=== PATIENT | female | born 1955 | race Hispanic/Latino ===

== ENCOUNTER 2018-03-29 20:31 | Inpatient (IN) | payer OTHER ==
[~2018-03-29] VITALS: Ht 152.4 cm; Wt 59.0 kg
[~2018-03-29 20:31] MED LIST: AMLO10TA6 PO; ATOR20TA65 PO; ETOMIDATE 2 MG/ML 10 ML VIAL IVP ONE; GLIM1TAB2 PO; LISI10TA7 PO; METF-444 PO; ROCURONIUM BROMIDE 10MG/1ML 5ML VL IV ONE
[2018-03-29] MEDS ORDERED: LIDOCAINE HCL 2% VISCOUS 15 ML UDCUP ONE (21:25)
[2018-03-29] MEDS ORDERED: FAMOTIDINE 20MG TAB 20 MG TAB ONE (21:25)
[2018-03-29] MEDS ORDERED: MAG HYDROX/AL HYDROX/SIMETH ES 30 ML SUSP UDCUP ONE (21:25)
[2018-03-29] MEDS ORDERED: ACETAMINOPHEN 325 MG TAB ONE (21:26)
[2018-03-29 21:27] LABS: BASOPHILS % (AUTO) 0.3 % (0.0-5.0); HEMATOCRIT 28.5 % (36-48); LYMPHOCYTES % (AUTO) 3.7 % (21.0-51.0); MEAN CORPUSCULAR HEMOGLOBIN 28.3 pg (27.0-33.0); MEAN CORPUSCULAR HGB CONC 34.3 g/dL (32.0-36.0); MEAN CORPUSCULAR VOLUME 82.5 fL (79-99); MONOCYTES % (AUTO) 7.5 % (3.0-13.0); NEUTROPHILS % (AUTO) 88.5 % (40.0-77.0); NUCLEATED RED BLOOD CELLS 0.1 % (0.0-0.19); PLATELET COUNT (AUTO) 202 K/uL (130-400); RED BLOOD CELL COUNT(AUTO) 3.45 MIL/uL (4.00-5.50); WHITE BLOOD COUNT (AUTO) 10.6 K/uL (4.8-10.8)
[2018-03-29 21:29] LABS: APPEARANCE,URINE Clear (CLEAR); BILIRUBIN,URINE Negative (NEGATIVE); COLOR,URINE Yellow (YELLOW); GLUCOSE, URINE (UA) >=1000 mg/dL (NEGATIVE); KETONES,URINE Trace mg/dL (NEGATIVE); LEUKOCYTE ESTERASE ,URINE Moderate (NEGATIVE); NITRATE,URINE Positive (NEGATIVE); OCCULT BLOOD,URINE Negative (NEGATIVE); PH,URINE 6.5 (5.0-8.0); PROTEIN,URINE Negative (NEGATIVE)
[2018-03-29 21:52] LABS: ALBUMIN 3.5 g/dL (3.5-5.0); BILIRUBIN,TOTAL 0.5 mg/dL (0.2-1.0); CREATININE 0.7 mg/dL (0.5-1.5); POTASSIUM 4.5 mmol/L (3.5-5.1); TOTAL PROTEIN, SERUM 6.8 g/dL (6.0-8.3)
[2018-03-29 21:54] LABS: BACTERIA,URINE Moderate /HPF (None Seen); RBC,URINE 0-1 /HPF (0-1)
[2018-03-29 21:55] LABS: SQUAMOUS EPITHELIAL CELL,UR Rare /HPF (0-2)
[2018-03-29] MEDS: LEVOFLOXACIN 500 MG/D5W 100 ML 100 ML IV SCH (23:30)
[2018-03-29] MEDS: SODIUM CHLORIDE 0.9% 1000ML 1,000 ML IV SCH (23:30)
[2018-03-30] VITALS (7 sets, daily range): BP systolic 121–150; BP diastolic 63–74
[2018-03-30] MEDS ORDERED: SODIUM CHLORIDE 0.9% 1000ML 1,000 ML IV ONE
[2018-03-30] MEDS ORDERED: LEVOFLOXACIN 500 MG/D5W 100 ML 0 ML ONE
[2018-03-30] MEDS ORDERED: LEVOFLOXACIN 500 MG/D5W 100 ML 100 ML ONE (00:07)
[2018-03-30] MEDS ORDERED: DEXTROSE 50%-WATER 50 ML DISP.SYRIN IV PRN ×2 (00:30→12:30)
[2018-03-30] MEDS ORDERED: GLUCAGON 1MG KIT 1 MG ML IM PRN ×2 (00:30→12:30)
[2018-03-30 01:03] LABS: HEMOGLOBIN A1C 6.8 % (4.0-6.0)
[2018-03-30] MEDS ORDERED: ONDANSETRON HCL 4 MG/2 ML VIAL IV PRN (02:15)
[2018-03-30] MEDS ORDERED: LISI-613 PO (04:50)
[2018-03-30] MEDS ORDERED: METF-444 PO (04:50)
[2018-03-30] MEDS ORDERED: LEVO50TA11 PO (04:50)
[2018-03-30] MEDS ORDERED: ATOR40TA69 PO (04:50)
[2018-03-30] MEDS ORDERED: AEC81 PO (04:50)
[2018-03-30 06:15] LABS: BASOPHILS % (AUTO) 0.1 % (0.0-5.0); HEMATOCRIT 26.9 % (36-48); LYMPHOCYTES % (AUTO) 5.8 % (21.0-51.0); MEAN CORPUSCULAR HEMOGLOBIN 28.8 pg (27.0-33.0); MEAN CORPUSCULAR HGB CONC 34.9 g/dL (32.0-36.0); MEAN CORPUSCULAR VOLUME 82.3 fL (79-99); MONOCYTES % (AUTO) 9.1 % (3.0-13.0); PLATELET COUNT (AUTO) 196 K/uL (130-400); RED BLOOD CELL COUNT(AUTO) 3.27 MIL/uL (4.00-5.50); RED CELL DISTRIBUTION WIDTH 13.1 % (11.0-15.5); WHITE BLOOD COUNT (AUTO) 7.4 K/uL (4.8-10.8)
[2018-03-30 06:30] LABS: ALBUMIN 2.9 g/dL (3.5-5.0); BILIRUBIN,TOTAL 0.5 mg/dL (0.2-1.0); CREATININE 0.6 mg/dL (0.5-1.5); POTASSIUM 4.5 mmol/L (3.5-5.1); TOTAL PROTEIN, SERUM 5.9 g/dL (6.0-8.3)
[2018-03-30] MEDS: PANTOPRAZOLE SODIUM 40 MG TABLET.DR PO SCH (08:09)
[2018-03-30] MEDS: ACETAMINOPHEN 325 MG TAB PO PRN ×3 (08:11→23:01)
[2018-03-30] MEDS: ENOXAPARIN SODIUM 30 MG/0.3 ML SQ SCH (08:18)
[2018-03-30] MEDS ORDERED: CEFTRIAXONE SODIUM 1 GM IVP SCH (09:00)
[2018-03-30] MEDS: SODIUM CHLORIDE 0.9% 1000ML 1,000 ML IV SCH ×2 (11:25→23:00)
[2018-03-30] MEDS: CEFEPIME HCL 2 GM VIAL IVP SCH ×2 (15:25→22:49)
[2018-03-30] MEDS: INSULIN HUMULIN R 100 UNIT/ML 3ML SQ SCH ×2 (17:22→22:14)
[2018-03-30] MEDS: LEVOFLOXACIN 500 MG/D5W 100 ML 100 ML IV SCH (22:49)
[2018-03-31 03:00] VITALS: BP 139/68
[2018-03-31 04:00] LABS: HEMATOCRIT 26.7 % (36-48); MEAN CORPUSCULAR HEMOGLOBIN 28.1 pg (27.0-33.0); MEAN CORPUSCULAR HGB CONC 34.5 g/dL (32.0-36.0); MEAN CORPUSCULAR VOLUME 81.7 fL (79-99); NUCLEATED RED BLOOD CELLS 0.1 % (0.0-0.19); PLATELET COUNT (AUTO) 176 K/uL (130-400); RED BLOOD CELL COUNT(AUTO) 3.26 MIL/uL (4.00-5.50); WHITE BLOOD COUNT (AUTO) 5.2 K/uL (4.8-10.8)
[2018-03-31 04:20] LABS: CREATININE 0.7 mg/dL (0.5-1.5); MAGNESIUM 1.9 mg/dL (1.80-2.40); POTASSIUM 3.7 mmol/L (3.5-5.1)
[2018-03-31 04:23] LABS: BAND NEUTROPHILS % (MANUAL) 10 % (0-2); LYMPHOCYTES % (MANUAL) 10 % (22-44); MAN.DIFF COMMENT-IMPRESSION MANUAL DIFFERENTIAL; MONOCYTES % (MANUAL) 8 % (2-9); PLATELET MORPHOLOGY COMMENT ADEQUATE; SEGMENTED NEUTROPHILS % 72 % (40-70)
[2018-03-31] MEDS: ACETAMINOPHEN 325 MG TAB PO PRN ×2 (05:06→21:29)
[2018-03-31] MEDS: INSULIN HUMULIN R 100 UNIT/ML 3ML SQ SCH ×3 (07:08→21:00)
[2018-03-31 07:47] VITALS: BP 132/61
[2018-03-31] MEDS: PANTOPRAZOLE SODIUM 40 MG TABLET.DR PO SCH (09:00)
[2018-03-31] MEDS: ENOXAPARIN SODIUM 30 MG/0.3 ML SQ SCH (09:00)
[2018-03-31] MEDS ORDERED: COMPOUND IV MISC 1 EACH IVSOLN MISC PRN (10:15)
[2018-03-31] MEDS: CEFEPIME HCL 2 GM VIAL IVP SCH ×2 (11:02→23:00)
[2018-03-31] MEDS: SODIUM CHLORIDE 0.9% 1000ML 1,000 ML IV SCH ×2 (11:04→21:29)
[2018-03-31 12:03] VITALS: BP 144/69
[2018-03-31 16:36] VITALS: BP 135/64
[2018-03-31 19:00] VITALS: BP 139/68
[2018-03-31] MEDS ORDERED: LIDOCAINE HCL-MPF 1% 2ML VIAL IVP PRN (21:30)
[2018-03-31] MEDS ORDERED: POTASSIUM CHLORIDE 20MEQ/100ML 100 ML IV PRN (21:30)
[2018-03-31] MEDS ORDERED: POTASSIUM CHLORIDE 20 MEQ ERTAB PO PRN (21:30)
[2018-03-31] MEDS ORDERED: POTASSIUM CHLORIDE 10% ELIXIR 20 MEQ/15 ML UDCUP PO PRN (21:30)
[2018-03-31] MEDS ORDERED: ASPIRIN 325MG EC TAB 325 MG TABLET.DR PO STA (21:34)
[2018-03-31] MEDS ORDERED: METOPROLOL TARTRATE 1 MG/ML 5ML VIAL IV SCH (21:45)
[2018-03-31 21:55] LABS: CREATINE KINASE, TOTAL 124 U/L (21-232); MYOGLOBIN 48 ng/mL (10-92); TROPONIN I < 0.04 ng/mL (0.00-0.06)
[2018-03-31 21:58] LABS: CREATININE 0.7 mg/dL (0.5-1.5); MAGNESIUM 1.9 mg/dL (1.80-2.40); POTASSIUM 3.5 mmol/L (3.5-5.1)
[2018-03-31 22:10] LABS: BASOPHILS % (AUTO) 0.6 % (0.0-5.0); HEMATOCRIT 27.1 % (36-48); LYMPHOCYTES % (AUTO) 12.4 % (21.0-51.0); MEAN CORPUSCULAR HEMOGLOBIN 28.2 pg (27.0-33.0); MEAN CORPUSCULAR HGB CONC 34.4 g/dL (32.0-36.0); MONOCYTES % (AUTO) 6.7 % (3.0-13.0); NEUTROPHILS % (AUTO) 80.3 % (40.0-77.0); PLATELET COUNT (AUTO) 169 K/uL (130-400); RED BLOOD CELL COUNT(AUTO) 3.31 MIL/uL (4.00-5.50); RED CELL DISTRIBUTION WIDTH 13.5 % (11.0-15.5); WHITE BLOOD COUNT (AUTO) 6.4 K/uL (4.8-10.8)
[2018-03-31 22:39] LABS: CRP QUANTITATIVE 178.4 mg/L (0.00-9.0)
[2018-03-31] MEDS ORDERED: SODIUM CHLORIDE 0.9% 500ML 500 ML IV ONE (22:45)
[2018-03-31] MEDS ORDERED: SODIUM CHLORIDE 0.9% 250 ML IV ONE (22:57)
[2018-03-31 23:00] VITALS: BP 111/59
[2018-03-31] MEDS: LEVOFLOXACIN 500 MG/D5W 100 ML 100 ML IV SCH (23:00)
[2018-03-31] MEDS: MAGNESIUM 2GM PREMIX 50ML 50 ML IV PRN (23:49)
[2018-04-01 03:41] LABS: BASOPHILS % (AUTO) 0.7 % (0.0-5.0); HEMATOCRIT 24.2 % (36-48); LYMPHOCYTES % (AUTO) 9.8 % (21.0-51.0); MEAN CORPUSCULAR HEMOGLOBIN 28.3 pg (27.0-33.0); MEAN CORPUSCULAR VOLUME 83.2 fL (79-99); MONOCYTES % (AUTO) 7.9 % (3.0-13.0); NEUTROPHILS % (AUTO) 81.6 % (40.0-77.0); NUCLEATED RED BLOOD CELLS 0.1 % (0.0-0.19); PLATELET COUNT (AUTO) 168 K/uL (130-400); RED BLOOD CELL COUNT(AUTO) 2.91 MIL/uL (4.00-5.50); RED CELL DISTRIBUTION WIDTH 13.3 % (11.0-15.5); WHITE BLOOD COUNT (AUTO) 5.6 K/uL (4.8-10.8)
[2018-04-01 03:46] LABS: CARBON DIOXIDE 23 mmol/L (21-32); CHLORIDE 101 mmol/L (101-111); CHOLESTEROL 95 mg/dL (<200); CREATININE 0.5 mg/dL (0.5-1.5); GLOMERULAR FILTR. RATE CALC 134 mL/min (>60); GLUCOSE,RANDOM 163 mg/dL (70-105); HDL CHOLESTEROL 19 mg/dL (35-85); LDL DIRECT 35 mg/dL (0-99); POTASSIUM 3.7 mmol/L (3.5-5.1); SODIUM SERUM 130 mmol/L (136-145); THYROID STIMULATING HORMONE 3.16 uIU/mL (0.36-3.74); TRIGLYCERIDES 240 mg/dL (30-200); UREA NITROGEN, BLOOD 8 mg/dL (7-18)
[2018-04-01 04:00] VITALS: BP 140/69
[2018-04-01 04:14] LABS: CREATINE KINASE, TOTAL 93 U/L (21-232); TROPONIN I < 0.04 ng/mL (0.00-0.06)
[2018-04-01 04:54] LABS: MYOGLOBIN 33 ng/mL (10-92)
[2018-04-01] MEDS: LEVOTHYROXINE 50 MCG TABLET PO SCH (05:54)
[2018-04-01] MEDS: INSULIN HUMULIN R 100 UNIT/ML 3ML SQ SCH ×4 (05:55→21:00)
[2018-04-01 07:36] VITALS: BP 152/79
[2018-04-01] MEDS: AMLODIPINE BESYLATE 5 MG TAB PO SCH (08:15)
[2018-04-01] MEDS: ASPIRIN 325MG EC TAB 325 MG TABLET.DR PO SCH (08:15)
[2018-04-01] MEDS: METFORMIN HCL 500 MG TABLET PO SCH ×2 (08:15→22:59)
[2018-04-01] MEDS: PANTOPRAZOLE SODIUM 40 MG TABLET.DR PO SCH (08:15)
[2018-04-01] MEDS: ENOXAPARIN SODIUM 30 MG/0.3 ML SQ SCH (08:16)
[2018-04-01] MEDS: IRON SUCROSE COMPLEX 100 MG in SODIUM CHLORIDE 0.9% 50 ML IV SCH (08:40)
[2018-04-01 09:33] LABS: CREATINE KINASE, TOTAL 106 U/L (21-232); MYOGLOBIN 48 ng/mL (10-92); TROPONIN I < 0.04 ng/mL (0.00-0.06)
[2018-04-01] MEDS: CEFEPIME HCL 2 GM VIAL IVP SCH ×2 (09:36→22:58)
[2018-04-01 11:49] VITALS: BP 127/65
[2018-04-01] MEDS: OSELTAMIVIR PHOSPHATE 75 MG CAP PO SCH ×2 (14:45→22:59)
[2018-04-01 16:00] VITALS: BP 140/73
[2018-04-01] MEDS: ACETAMINOPHEN 325 MG TAB PO PRN (19:41)
[2018-04-01 20:04] VITALS: BP 132/60
[2018-04-01] MEDS ORDERED: ATORVASTATIN CALCIUM 40 MG TABLET PO SCH (21:00)
[2018-04-01] MEDS: LISINOPRIL 20 MG TABLET PO SCH (22:59)
[2018-04-01] MEDS: LEVOFLOXACIN 500 MG/D5W 100 ML 100 ML IV SCH (23:10)
[2018-04-01 23:48] VITALS: BP 125/63
[2018-04-02] VITALS (7 sets, daily range): BP systolic 110–131; BP diastolic 61–72
[2018-04-02] MEDS: ACETAMINOPHEN 325 MG TAB PO PRN ×2 (05:00→19:41)
[2018-04-02 05:01] LABS: BASOPHILS % (AUTO) 0.4 % (0.0-5.0); LYMPHOCYTES % (AUTO) 10.3 % (21.0-51.0); MEAN CORPUSCULAR HEMOGLOBIN 28.2 pg (27.0-33.0); MEAN CORPUSCULAR HGB CONC 34.2 g/dL (32.0-36.0); MEAN CORPUSCULAR VOLUME 82.4 fL (79-99); MONOCYTES % (AUTO) 12.4 % (3.0-13.0); NEUTROPHILS % (AUTO) 76.9 % (40.0-77.0); PLATELET COUNT (AUTO) 194 K/uL (130-400); RED BLOOD CELL COUNT(AUTO) 3.15 MIL/uL (4.00-5.50); RED CELL DISTRIBUTION WIDTH 13.5 % (11.0-15.5); WHITE BLOOD COUNT (AUTO) 9.3 K/uL (4.8-10.8)
[2018-04-02 05:21] LABS: ALBUMIN 2.6 g/dL (3.5-5.0); BILIRUBIN,DIRECT 0.3 mg/dL (0.0-0.3); BILIRUBIN,TOTAL 0.6 mg/dL (0.2-1.0); CREATININE 0.7 mg/dL (0.5-1.5); MAGNESIUM 2.3 mg/dL (1.80-2.40); POTASSIUM 4.2 mmol/L (3.5-5.1); TOTAL PROTEIN, SERUM 5.8 g/dL (6.0-8.3)
[2018-04-02] MEDS: LEVOTHYROXINE 50 MCG TABLET PO SCH (05:40)
[2018-04-02] MEDS: INSULIN HUMULIN R 100 UNIT/ML 3ML SQ SCH ×4 (06:42→21:45)
[2018-04-02] MEDS ORDERED: SODIUM CHLORIDE 0.9% 1000ML 1,000 ML IV SCH (08:00)
[2018-04-02] MEDS: ASPIRIN 325MG EC TAB 325 MG TABLET.DR PO SCH (09:49)
[2018-04-02] MEDS: METFORMIN HCL 500 MG TABLET PO SCH ×2 (09:50→20:57)
[2018-04-02] MEDS: OSELTAMIVIR PHOSPHATE 75 MG CAP PO SCH ×2 (09:50→20:57)
[2018-04-02] MEDS: AMLODIPINE BESYLATE 5 MG TAB PO SCH (09:50)
[2018-04-02] MEDS: PANTOPRAZOLE SODIUM 40 MG TABLET.DR PO SCH (09:50)
[2018-04-02] MEDS: ENOXAPARIN SODIUM 30 MG/0.3 ML SQ SCH (09:52)
[2018-04-02] MEDS: IRON SUCROSE COMPLEX 100 MG in SODIUM CHLORIDE 0.9% 50 ML IV SCH (10:29)
[2018-04-02] MEDS ORDERED: DIATR MEGLU/DIATRIZOATE SODIUM 30 ML BOTTLE ONE (12:08)
[2018-04-02 19:37] LABS: ABG BASE EXCESS -7.1 mmol/L (-2.0-3.0); ABG HCO3 16.3 mmol/L (21.0-28.0); ABG OXYGEN SATURATION 91.9 % (95.0-99.0); ABG PCO2 26 mmHg (32-45)
[2018-04-02 19:48] LABS: HEMATOCRIT 26.3 % (36-48); MEAN CORPUSCULAR HEMOGLOBIN 27.8 pg (27.0-33.0); MEAN CORPUSCULAR HGB CONC 33.4 g/dL (32.0-36.0); MEAN CORPUSCULAR VOLUME 83.4 fL (79-99); PLATELET COUNT (AUTO) 238 K/uL (130-400); RED BLOOD CELL COUNT(AUTO) 3.16 MIL/uL (4.00-5.50); RED CELL DISTRIBUTION WIDTH 14.1 % (11.0-15.5); WHITE BLOOD COUNT (AUTO) 14.5 K/uL (4.8-10.8)
[2018-04-02 20:00] LABS: CREATININE 0.8 mg/dL (0.5-1.5); POTASSIUM 3.8 mmol/L (3.5-5.1)
[2018-04-02 20:02] LABS: INR 0.96 (0.85-1.15); PARTIAL THROMBOPLASTIN TIME 38.1 SEC (26.3-35.5); PROTHROMBIN TIME 10.1 SEC (9.6-11.6)
[2018-04-02 20:06] LABS: ALBUMIN 2.7 g/dL (3.5-5.0); BILIRUBIN,TOTAL 0.6 mg/dL (0.2-1.0); TOTAL PROTEIN, SERUM 6.3 g/dL (6.0-8.3)
[2018-04-02] MEDS ORDERED: VANCOMYCIN PROTOCOL PER PHARMACY IV SCH (20:30)
[2018-04-02] MEDS: SODIUM CHLORIDE 0.9% 1000ML 1,000 ML IV SCH (20:30)
[2018-04-02] MEDS ORDERED: COMPOUND IV REFRIGERATED 1 EACH IVSOLN MISC PRN (20:45)
[2018-04-02] MEDS: LISINOPRIL 20 MG TABLET PO SCH (20:57)
[2018-04-02] MEDS: MEROPENEM 1 GM VIAL IVP SCH (20:57)
[2018-04-02] MEDS ORDERED: VANCOMYCIN 1GM+NS 250ML 250 ML IV SCH (21:00)
[2018-04-02] MEDS: LEVOFLOXACIN 500 MG/D5W 100 ML 100 ML IV SCH (21:45)
[2018-04-02] MEDS: VANCOMYCIN 0.75 GM in SODIUM CHLORIDE 0.9% 250 ML IV SCH (21:47)
[2018-04-02] MEDS: IPRATROPIUM/ALBUTEROL SULFATE 3 ML SOLUTION IH SCH (23:02)
[2018-04-02] MEDS: LACTATED RINGERS 1000ML 1,000 ML IV SCH (23:12)
[2018-04-03] VITALS (32 sets, daily range): BP systolic 56–131; BP diastolic 30–76
[2018-04-03] MEDS: IPRATROPIUM/ALBUTEROL SULFATE 3 ML SOLUTION IH SCH ×6 (01:37→21:41)
[2018-04-03 04:09] LABS: BASOPHILS % (AUTO) 0.2 % (0.0-5.0); HEMATOCRIT 22.4 % (36-48); LYMPHOCYTES % (AUTO) 6.5 % (21.0-51.0); MEAN CORPUSCULAR HEMOGLOBIN 28.6 pg (27.0-33.0); MEAN CORPUSCULAR HGB CONC 34.6 g/dL (32.0-36.0); MEAN CORPUSCULAR VOLUME 82.7 fL (79-99); MONOCYTES % (AUTO) 11.7 % (3.0-13.0); NEUTROPHILS % (AUTO) 81.6 % (40.0-77.0); PLATELET COUNT (AUTO) 233 K/uL (130-400); RED BLOOD CELL COUNT(AUTO) 2.71 MIL/uL (4.00-5.50); RED CELL DISTRIBUTION WIDTH 13.7 % (11.0-15.5); WHITE BLOOD COUNT (AUTO) 14.4 K/uL (4.8-10.8)
[2018-04-03] MEDS: SODIUM CHLORIDE 0.9% 1000ML 1,000 ML IV SCH (04:20)
[2018-04-03] MEDS: MEROPENEM 1 GM VIAL IVP SCH ×3 (04:20→20:25)
[2018-04-03 04:45] LABS: CREATININE 0.7 mg/dL (0.5-1.5); POTASSIUM 3.5 mmol/L (3.5-5.1)
[2018-04-03] MEDS ORDERED: ENOXAPARIN SODIUM 60 MG/0.6 ML SQ ONE (05:22)
[2018-04-03 05:43] LABS: ABG BASE EXCESS -6.2 mmol/L (-2.0-3.0); ABG HCO3 16.8 mmol/L (21.0-28.0); ABG OXYGEN SATURATION 97.5 % (95.0-99.0); ABG PCO2 28 mmHg (32-45)
[2018-04-03] MEDS: LACTATED RINGERS 1000ML 1,000 ML IV SCH ×2 (06:06→17:15)
[2018-04-03] MEDS: INSULIN HUMULIN R 100 UNIT/ML 3ML SQ SCH ×4 (06:07→23:51)
[2018-04-03] MEDS: LEVOTHYROXINE 50 MCG TABLET PO SCH (06:29)
[2018-04-03] MEDS: AMLODIPINE BESYLATE 5 MG TAB PO SCH (08:46)
[2018-04-03] MEDS: PANTOPRAZOLE SODIUM 40 MG TABLET.DR PO SCH (08:46)
[2018-04-03] MEDS: METFORMIN HCL 500 MG TABLET PO SCH ×2 (08:46→20:14)
[2018-04-03] MEDS: ASPIRIN 325MG EC TAB 325 MG TABLET.DR PO SCH (08:46)
[2018-04-03] MEDS: OSELTAMIVIR PHOSPHATE 75 MG CAP PO SCH ×2 (08:46→20:27)
[2018-04-03] MEDS: VANCOMYCIN 0.75 GM in SODIUM CHLORIDE 0.9% 250 ML IV SCH ×2 (08:55→21:19)
[2018-04-03] MEDS: IRON SUCROSE COMPLEX 100 MG in SODIUM CHLORIDE 0.9% 50 ML IV SCH (08:57)
[2018-04-03] MEDS ORDERED: ENOXAPARIN SODIUM 60 MG/0.6 ML SQ SCH (09:00)
[2018-04-03 09:39] LABS: CREATININE 0.6 mg/dL (0.5-1.5); POTASSIUM 3.7 mmol/L (3.5-5.1)
[2018-04-03] MEDS ORDERED: FENTANYL CITRATE PF 50 MCG/1 ML 2ML VIAL ONE (11:14)
[2018-04-03] MEDS ORDERED: MIDAZOLAM HCL 1 MG/ML 2ML VIAL ONE (11:14)
[2018-04-03] MEDS ORDERED: FENTANYL 2500MCG+NS 250ML 250 ML IV ONE (11:37)
[2018-04-03] MEDS ORDERED: NOREPINEPHRINE 4MG/NS 250ML 250 ML IV SCH (11:45)
[2018-04-03] MEDS: MIDAZOLAM 100MG-0.9% NS 100ML 100 ML IV PRN (12:08)
[2018-04-03] MEDS: FENTANYL 2500MCG+NS 250ML 250 ML IV PRN (12:08)
[2018-04-03] MEDS: METHYLPREDNISOLONE SOD SUCC 40MG/ML 1ML IVP SCH ×2 (12:15→20:24)
[2018-04-03 12:38] LABS: ABG BASE EXCESS -6.3 mmol/L (-2.0-3.0); ABG HCO3 19.1 mmol/L (21.0-28.0); ABG OXYGEN SATURATION 99.7 % (95.0-99.0); ABG PCO2 38 mmHg (32-45)
[2018-04-03] MEDS: LISINOPRIL 20 MG TABLET PO SCH (20:14)
[2018-04-03] MEDS: ENOXAPARIN SODIUM 40 MG/0.4 ML SYRINGE SQ SCH (20:26)
[2018-04-03] MEDS: LEVOFLOXACIN 500 MG/D5W 100 ML 100 ML IV SCH (23:51)
[2018-04-04] VITALS (40 sets, daily range): BP systolic 92–121; BP diastolic 47–63
[2018-04-04] MEDS: IPRATROPIUM/ALBUTEROL SULFATE 3 ML SOLUTION IH SCH ×6 (02:11→22:29)
[2018-04-04] MEDS: LACTATED RINGERS 1000ML 1,000 ML IV SCH ×3 (03:06→23:55)
[2018-04-04] MEDS: METHYLPREDNISOLONE SOD SUCC 40MG/ML 1ML IVP SCH ×3 (03:24→20:52)
[2018-04-04] MEDS: MEROPENEM 1 GM VIAL IVP SCH ×3 (03:32→20:52)
[2018-04-04 03:44] LABS: MEAN CORPUSCULAR HEMOGLOBIN 27.4 pg (27.0-33.0); PLATELET COUNT (AUTO) 311 K/uL (130-400); RED BLOOD CELL COUNT(AUTO) 2.65 MIL/uL (4.00-5.50); RED CELL DISTRIBUTION WIDTH 14.2 % (11.0-15.5); WHITE BLOOD COUNT (AUTO) 20.8 K/uL (4.8-10.8)
[2018-04-04 03:53] LABS: ABG BASE EXCESS -7.5 mmol/L (-2.0-3.0); ABG HCO3 17.7 mmol/L (21.0-28.0); ABG OXYGEN SATURATION 99.7 % (95.0-99.0); ABG PCO2 35 mmHg (32-45)
[2018-04-04 04:11] LABS: ALBUMIN 2.1 g/dL (3.5-5.0); BILIRUBIN,DIRECT 0.2 mg/dL (0.0-0.3); BILIRUBIN,TOTAL 0.5 mg/dL (0.2-1.0); CREATININE 1.1 mg/dL (0.5-1.5); POTASSIUM 4.2 mmol/L (3.5-5.1); TOTAL PROTEIN, SERUM 5.6 g/dL (6.0-8.3)
[2018-04-04] MEDS: LEVOTHYROXINE 50 MCG TABLET PO SCH (05:47)
[2018-04-04] MEDS: INSULIN HUMULIN R 100 UNIT/ML 3ML SQ SCH ×3 (05:51→18:06)
[2018-04-04] MEDS ORDERED: VANCOMYCIN 1GM+NS 250ML 250 ML IV SCH (08:45)
[2018-04-04] MEDS: VANCOMYCIN 0.75 GM in SODIUM CHLORIDE 0.9% 250 ML IV SCH ×2 (08:45→20:52)
[2018-04-04] MEDS: ENOXAPARIN SODIUM 40 MG/0.4 ML SYRINGE SQ SCH ×2 (08:51→20:53)
[2018-04-04] MEDS: ASPIRIN 325MG EC TAB 325 MG TABLET.DR PO SCH (08:51)
[2018-04-04] MEDS: OSELTAMIVIR PHOSPHATE 75 MG CAP PO SCH ×2 (08:52→20:53)
[2018-04-04] MEDS: METFORMIN HCL 500 MG TABLET PO SCH ×2 (08:52→20:54)
[2018-04-04] MEDS: IRON SUCROSE COMPLEX 100 MG in SODIUM CHLORIDE 0.9% 50 ML IV SCH (08:52)
[2018-04-04] MEDS: PANTOPRAZOLE SODIUM 40 MG TABLET.DR PO SCH (08:52)
[2018-04-04] MEDS: FENTANYL 2500MCG+NS 250ML 250 ML IV PRN (12:20)
[2018-04-04] MEDS: MIDAZOLAM 100MG-0.9% NS 100ML 100 ML IV PRN (17:56)
[2018-04-04] MEDS: LEVOFLOXACIN 500 MG/D5W 100 ML 100 ML IV SCH (23:56)
[2018-04-05] VITALS (56 sets, daily range): BP systolic 98–135; BP diastolic 48–68
[2018-04-05] MEDS: INSULIN HUMULIN R 100 UNIT/ML 3ML SQ SCH ×4 (00:08→18:07)
[2018-04-05] MEDS: IPRATROPIUM/ALBUTEROL SULFATE 3 ML SOLUTION IH SCH ×6 (02:42→21:33)
[2018-04-05] MEDS: METHYLPREDNISOLONE SOD SUCC 40MG/ML 1ML IVP SCH ×3 (03:25→20:45)
[2018-04-05] MEDS: MEROPENEM 1 GM VIAL IVP SCH ×3 (03:37→20:45)
[2018-04-05 04:09] LABS: ABG BASE EXCESS -3.2 mmol/L (-2.0-3.0); ABG HCO3 21.1 mmol/L (21.0-28.0); ABG OXYGEN SATURATION 96.7 % (95.0-99.0); ABG PCO2 36 mmHg (32-45)
[2018-04-05 04:16] LABS: HEPATITIS A ANTIBODY IGM Negative (Negative); HEPATITIS B CORE IGM Negative (Negative); HEPATITIS Bs ANTIGEN SCREEN P Negative (Negative)
[2018-04-05 04:18] LABS: MEAN CORPUSCULAR VOLUME 82.6 fL (79-99)
[2018-04-05 04:34] LABS: HEMATOCRIT 21.1 % (36-48); MEAN CORPUSCULAR HEMOGLOBIN 27.8 pg (27.0-33.0); MEAN CORPUSCULAR HGB CONC 33.7 g/dL (32.0-36.0); PLATELET COUNT (AUTO) 399 K/uL (130-400); RED BLOOD CELL COUNT(AUTO) 2.55 MIL/uL (4.00-5.50); RED CELL DISTRIBUTION WIDTH 13.8 % (11.0-15.5); WHITE BLOOD COUNT (AUTO) 22.3 K/uL (4.8-10.8)
[2018-04-05 04:49] LABS: CREATININE 0.7 mg/dL (0.5-1.5); MAGNESIUM 2.6 mg/dL (1.80-2.40); PHOSPHORUS 1.9 mg/dL (2.5-4.9); POTASSIUM 3.8 mmol/L (3.5-5.1)
[2018-04-05 05:25] LABS: B-TYPE NATRIURETIC PEPTIDE 195 pg/mL (0-100)
[2018-04-05] MEDS: LEVOTHYROXINE 50 MCG TABLET PO SCH (06:06)
[2018-04-05] MEDS: IRON SUCROSE COMPLEX 100 MG in SODIUM CHLORIDE 0.9% 50 ML IV SCH (10:01)
[2018-04-05] MEDS: OSELTAMIVIR PHOSPHATE 75 MG CAP PO SCH ×2 (10:02→20:45)
[2018-04-05] MEDS: ENOXAPARIN SODIUM 40 MG/0.4 ML SYRINGE SQ SCH ×2 (10:02→20:46)
[2018-04-05] MEDS: METFORMIN HCL 500 MG TABLET PO SCH ×2 (10:02→20:45)
[2018-04-05] MEDS: ASPIRIN 325MG EC TAB 325 MG TABLET.DR PO SCH (10:02)
[2018-04-05] MEDS: PANTOPRAZOLE SODIUM 40 MG TABLET.DR PO SCH (10:02)
[2018-04-05] MEDS: LACTATED RINGERS 1000ML 1,000 ML IV SCH ×2 (10:06→19:15)
[2018-04-05] MEDS: VANCOMYCIN 1GM+NS 250ML 250 ML IV SCH ×2 (10:28→20:44)
[2018-04-05] MEDS ORDERED: EPOETIN ALFA 10,000 UNIT/ML VIAL SQ SCH (11:00)
[2018-04-05] MEDS: NEUTRA-PHOS PACKET 1 EACH PO SCH ×3 (12:50→20:47)
[2018-04-05] MEDS: ALPRAZOLAM 0.5 MG TABLET PO SCH ×2 (14:11→22:14)
[2018-04-05] MEDS: METRONIDAZOLE 500MG/100ML BAG 100 ML IV SCH ×2 (14:11→22:14)
[2018-04-05] MEDS: FENTANYL 2500MCG+NS 250ML 250 ML IV PRN (17:54)
[2018-04-05] MEDS: LEVOFLOXACIN 500 MG/D5W 100 ML 100 ML IV SCH (22:14)
[2018-04-06] VITALS (25 sets, daily range): BP systolic 82–138; BP diastolic 31–80
[2018-04-06] MEDS: INSULIN HUMULIN R 100 UNIT/ML 3ML SQ SCH ×5 (00:45→23:23)
[2018-04-06] MEDS: IPRATROPIUM/ALBUTEROL SULFATE 3 ML SOLUTION IH SCH ×6 (02:10→21:35)
[2018-04-06] MEDS: MEROPENEM 1 GM VIAL IVP SCH ×3 (03:59→20:30)
[2018-04-06] MEDS: METHYLPREDNISOLONE SOD SUCC 40MG/ML 1ML IVP SCH (03:59)
[2018-04-06] MEDS: LACTATED RINGERS 1000ML 1,000 ML IV SCH ×2 (03:59→12:09)
[2018-04-06] MEDS: METRONIDAZOLE 500MG/100ML BAG 100 ML IV SCH ×3 (05:43→22:22)
[2018-04-06] MEDS: LEVOTHYROXINE 50 MCG TABLET PO SCH (05:43)
[2018-04-06 07:25] LABS: HEMATOCRIT 21.7 % (36-48); MEAN CORPUSCULAR HEMOGLOBIN 27.4 pg (27.0-33.0); MEAN CORPUSCULAR HGB CONC 32.7 g/dL (32.0-36.0); MEAN CORPUSCULAR VOLUME 83.6 fL (79-99); NUCLEATED RED BLOOD CELLS 0.1 % (0.0-0.19); PLATELET COUNT (AUTO) 391 K/uL (130-400); RED CELL DISTRIBUTION WIDTH 14.3 % (11.0-15.5); WHITE BLOOD COUNT (AUTO) 13.5 K/uL (4.8-10.8)
[2018-04-06 07:41] LABS: CREATININE 0.7 mg/dL (0.5-1.5); MAGNESIUM 2.4 mg/dL (1.80-2.40); POTASSIUM 4.4 mmol/L (3.5-5.1)
[2018-04-06 08:02] LABS: B-TYPE NATRIURETIC PEPTIDE 224 pg/mL (0-100)
[2018-04-06] MEDS: ALPRAZOLAM 0.5 MG TABLET PO SCH ×3 (08:05→22:22)
[2018-04-06] MEDS: METFORMIN HCL 500 MG TABLET PO SCH ×2 (08:05→20:30)
[2018-04-06] MEDS: VANCOMYCIN 1GM+NS 250ML 250 ML IV SCH ×2 (08:05→20:35)
[2018-04-06] MEDS: ASPIRIN 325MG EC TAB 325 MG TABLET.DR PO SCH (08:05)
[2018-04-06] MEDS: OSELTAMIVIR PHOSPHATE 75 MG CAP PO SCH (08:05)
[2018-04-06] MEDS: PANTOPRAZOLE SODIUM 40 MG TABLET.DR PO SCH (08:05)
[2018-04-06] MEDS: ENOXAPARIN SODIUM 40 MG/0.4 ML SYRINGE SQ SCH ×2 (08:06→20:32)
[2018-04-06] MEDS: NEUTRA-PHOS PACKET 1 EACH PO SCH ×4 (08:06→20:32)
[2018-04-06] MEDS: IRON SUCROSE COMPLEX 100 MG in SODIUM CHLORIDE 0.9% 50 ML IV SCH ×2 (09:00→09:57)
[2018-04-06] MEDS: FUROSEMIDE 10 MG/ML 2ML VIAL IV SCH (15:45)
[2018-04-06] MEDS: FENTANYL 2500MCG+NS 250ML 250 ML IV PRN (19:14)
[2018-04-06] MEDS: MIDAZOLAM 100MG-0.9% NS 100ML 100 ML IV PRN (22:40)
[2018-04-06] MEDS: LEVOFLOXACIN 500 MG/D5W 100 ML 100 ML IV SCH (23:15)
[2018-04-07] VITALS (23 sets, daily range): BP systolic 88–137; BP diastolic 46–72
[2018-04-07] MEDS: IPRATROPIUM/ALBUTEROL SULFATE 3 ML SOLUTION IH SCH ×6 (01:44→21:19)
[2018-04-07 03:10] LABS: ABG BASE EXCESS 3.3 mmol/L (-2.0-3.0); ABG HCO3 26.9 mmol/L (21.0-28.0); ABG OXYGEN SATURATION 95.1 % (95.0-99.0); ABG PCO2 38 mmHg (32-45)
[2018-04-07 03:49] LABS: MEAN CORPUSCULAR HEMOGLOBIN 28.6 pg (27.0-33.0); MEAN CORPUSCULAR HGB CONC 33.6 g/dL (32.0-36.0); MEAN CORPUSCULAR VOLUME 85.1 fL (79-99); PLATELET COUNT (AUTO) 435 K/uL (130-400); RED CELL DISTRIBUTION WIDTH 14.2 % (11.0-15.5); WHITE BLOOD COUNT (AUTO) 11.3 K/uL (4.8-10.8)
[2018-04-07 03:57] LABS: HEMATOCRIT 20.4 % (36-48)
[2018-04-07 03:59] LABS: CREATININE 0.6 mg/dL (0.5-1.5); PHOSPHORUS 2.2 mg/dL (2.5-4.9); POTASSIUM 3.9 mmol/L (3.5-5.1)
[2018-04-07 04:02] LABS: % IRON SATURATION 66.9 % (22-44)
[2018-04-07 04:23] LABS: B-TYPE NATRIURETIC PEPTIDE 138 pg/mL (0-100)
[2018-04-07] MEDS: MEROPENEM 1 GM VIAL IVP SCH ×3 (04:44→20:18)
[2018-04-07] MEDS: FUROSEMIDE 10 MG/ML 2ML VIAL IV SCH ×2 (04:45→14:37)
[2018-04-07 05:41] LABS: HEMATOCRIT 21.5 % (36-48)
[2018-04-07] MEDS: INSULIN HUMULIN R 100 UNIT/ML 3ML SQ SCH ×3 (06:00→18:00)
[2018-04-07] MEDS: METRONIDAZOLE 500MG/100ML BAG 100 ML IV SCH ×3 (06:01→22:01)
[2018-04-07] MEDS: ALPRAZOLAM 0.5 MG TABLET PO SCH ×3 (06:01→22:01)
[2018-04-07] MEDS: LEVOTHYROXINE 50 MCG TABLET PO SCH (06:01)
[2018-04-07] MEDS: LACTATED RINGERS 1000ML 1,000 ML IV SCH ×3 (06:22→20:52)
[2018-04-07] MEDS: PANTOPRAZOLE SODIUM 40 MG TABLET.DR PO SCH (08:02)
[2018-04-07] MEDS: METFORMIN HCL 500 MG TABLET PO SCH ×2 (08:02→20:52)
[2018-04-07] MEDS: IRON SUCROSE COMPLEX 100 MG in SODIUM CHLORIDE 0.9% 50 ML IV SCH ×2 (08:02)
[2018-04-07] MEDS: NEUTRA-PHOS PACKET 1 EACH PO SCH (08:03)
[2018-04-07] MEDS: VANCOMYCIN 1GM+NS 250ML 250 ML IV SCH ×2 (08:03→20:18)
[2018-04-07] MEDS ORDERED: SODIUM CHLORIDE 0.9% 250 ML IV ONE (09:21)
[2018-04-07] MEDS ORDERED: METOPROLOL TARTRATE 25 MG TAB PO SCH (10:00)
[2018-04-07] MEDS ORDERED: FUROSEMIDE 10 MG/ML 2ML VIAL IV ONE (11:30)
[2018-04-07] MEDS: FENTANYL 2500MCG+NS 250ML 250 ML IV PRN (18:47)
[2018-04-07] MEDS: MIDAZOLAM 100MG-0.9% NS 100ML 100 ML IV PRN (18:47)
[2018-04-07] MEDS: METOPROLOL TARTRATE 25 MG TAB PO SCH (20:52)
[2018-04-07] MEDS: LACTOBACILLUS RHAMNOSUS GG 1 EACH CAP.SPRINK PO SCH (20:52)
[2018-04-07] MEDS: LEVOFLOXACIN 500 MG/D5W 100 ML 100 ML IV SCH (23:57)
[2018-04-08] VITALS (23 sets, daily range): BP systolic 92–159; BP diastolic 50–87
[2018-04-08] MEDS: IPRATROPIUM/ALBUTEROL SULFATE 3 ML SOLUTION IH SCH ×6 (01:45→22:05)
[2018-04-08 03:41] LABS: CREATININE 0.7 mg/dL (0.5-1.5); MAGNESIUM 1.5 mg/dL (1.80-2.40); PHOSPHORUS 2.6 mg/dL (2.5-4.9); POTASSIUM 3.5 mmol/L (3.5-5.1)
[2018-04-08] MEDS: FUROSEMIDE 10 MG/ML 2ML VIAL IV SCH ×2 (03:42→15:37)
[2018-04-08 03:44] LABS: HEMATOCRIT 27.4 % (36-48); MEAN CORPUSCULAR HEMOGLOBIN 28.3 pg (27.0-33.0); MEAN CORPUSCULAR HGB CONC 33.9 g/dL (32.0-36.0); MEAN CORPUSCULAR VOLUME 83.5 fL (79-99); NUCLEATED RED BLOOD CELLS 0.3 % (0.0-0.19); PLATELET COUNT (AUTO) 363 K/uL (130-400); RED BLOOD CELL COUNT(AUTO) 3.28 MIL/uL (4.00-5.50); WHITE BLOOD COUNT (AUTO) 10.5 K/uL (4.8-10.8)
[2018-04-08] MEDS: MEROPENEM 1 GM VIAL IVP SCH ×3 (03:49→21:13)
[2018-04-08] MEDS: METRONIDAZOLE 500MG/100ML BAG 100 ML IV SCH (05:34)
[2018-04-08] MEDS: LEVOTHYROXINE 50 MCG TABLET PO SCH (05:34)
[2018-04-08] MEDS: ALPRAZOLAM 0.5 MG TABLET PO SCH ×3 (05:34→21:13)
[2018-04-08] MEDS: MAGNESIUM 2GM PREMIX 50ML 50 ML IV PRN (05:44)
[2018-04-08] MEDS: INSULIN HUMULIN R 100 UNIT/ML 3ML SQ SCH ×4 (06:00→18:00)
[2018-04-08] MEDS: VANCOMYCIN 1GM+NS 250ML 250 ML IV SCH (08:00)
[2018-04-08] MEDS ORDERED: MAGNESIUM 2GM PREMIX 50ML 50 ML IV SCH (08:45)
[2018-04-08] MEDS: LACTOBACILLUS RHAMNOSUS GG 1 EACH CAP.SPRINK PO SCH ×2 (10:35→21:13)
[2018-04-08] MEDS: METFORMIN HCL 500 MG TABLET PO SCH ×2 (10:35→21:13)
[2018-04-08] MEDS: METOPROLOL TARTRATE 25 MG TAB PO SCH ×2 (10:35→21:13)
[2018-04-08] MEDS: METRONIDAZOLE 500 MG TABLET PO SCH ×3 (10:35→21:16)
[2018-04-08] MEDS: NEUTRA-PHOS PACKET 1 EACH PO SCH ×4 (10:36→21:12)
[2018-04-08] MEDS: IRON SUCROSE COMPLEX 100 MG in SODIUM CHLORIDE 0.9% 50 ML IV SCH (10:57)
[2018-04-08] MEDS ORDERED: SODIUM CHLORIDE 0.9% 500ML 500 ML IV ONE (12:13)
[2018-04-08] MEDS: FAMOTIDINE/PF 20 MG/2 ML VIAL IV SCH ×2 (12:22→21:13)
[2018-04-09] VITALS (23 sets, daily range): BP systolic 96–167; BP diastolic 48–89
[2018-04-09] MEDS: IPRATROPIUM/ALBUTEROL SULFATE 3 ML SOLUTION IH SCH ×6 (01:48→21:37)
[2018-04-09] MEDS: METRONIDAZOLE 500 MG TABLET PO SCH ×4 (03:32→21:02)
[2018-04-09] MEDS: MEROPENEM 1 GM VIAL IVP SCH ×3 (03:32→21:01)
[2018-04-09 04:22] LABS: HEMATOCRIT 27.6 % (36-48); MEAN CORPUSCULAR HEMOGLOBIN 29.2 pg (27.0-33.0); MEAN CORPUSCULAR HGB CONC 34.5 g/dL (32.0-36.0); MEAN CORPUSCULAR VOLUME 84.5 fL (79-99); PLATELET COUNT (AUTO) 335 K/uL (130-400); RED BLOOD CELL COUNT(AUTO) 3.26 MIL/uL (4.00-5.50); RED CELL DISTRIBUTION WIDTH 14.7 % (11.0-15.5); WHITE BLOOD COUNT (AUTO) 10.2 K/uL (4.8-10.8)
[2018-04-09 04:34] LABS: CREATININE 0.6 mg/dL (0.5-1.5); MAGNESIUM 1.9 mg/dL (1.80-2.40); PHOSPHORUS 2.6 mg/dL (2.5-4.9); POTASSIUM 3.9 mmol/L (3.5-5.1)
[2018-04-09 04:44] LABS: B-TYPE NATRIURETIC PEPTIDE 140 pg/mL (0-100)
[2018-04-09] MEDS: FUROSEMIDE 10 MG/ML 2ML VIAL IV SCH ×2 (04:53→16:01)
[2018-04-09] MEDS: INSULIN HUMULIN R 100 UNIT/ML 3ML SQ SCH ×4 (06:00→18:00)
[2018-04-09] MEDS: ALPRAZOLAM 0.5 MG TABLET PO SCH ×3 (06:00→22:11)
[2018-04-09] MEDS: LEVOTHYROXINE 100 MCG VIAL IV SCH (06:15)
[2018-04-09 07:32] LABS: ABG BASE EXCESS 3.9 mmol/L (-2.0-3.0); ABG HCO3 25.3 mmol/L (21.0-28.0); ABG OXYGEN SATURATION 98.5 % (95.0-99.0); ABG PCO2 29 mmHg (32-45)
[2018-04-09] MEDS ORDERED: PROPOFOL 1000 MG/100 ML IV PRN (08:30)
[2018-04-09] MEDS ORDERED: PROPOFOL 1000 MG/100 ML 100 ML IV PRN (08:45)
[2018-04-09] MEDS ORDERED: PANTOPRAZOLE SODIUM 40 MG TABLET.DR PO SCH (09:00)
[2018-04-09] MEDS: METFORMIN HCL 500 MG TABLET PO SCH ×2 (09:01→21:01)
[2018-04-09] MEDS: FAMOTIDINE/PF 20 MG/2 ML VIAL IV SCH ×2 (09:01→21:01)
[2018-04-09] MEDS: METOPROLOL TARTRATE 25 MG TAB PO SCH ×2 (09:02→21:02)
[2018-04-09] MEDS: LACTOBACILLUS RHAMNOSUS GG 1 EACH CAP.SPRINK PO SCH ×2 (09:02→21:01)
[2018-04-09] MEDS: IRON SUCROSE COMPLEX 100 MG in SODIUM CHLORIDE 0.9% 50 ML IV SCH (09:03)
[2018-04-09 12:06] LABS: ABG BASE EXCESS 2.2 mmol/L (-2.0-3.0); ABG HCO3 26.2 mmol/L (21.0-28.0); ABG OXYGEN SATURATION 95.9 % (95.0-99.0); ABG PCO2 39 mmHg (32-45)
[2018-04-09] MEDS ORDERED: SODIUM CHLORIDE 0.9% 500ML 500 ML IV ONE (13:01)
[2018-04-09] MEDS ORDERED: ACETAMINOPHEN ELIXIR 650 MG/20.3 ML UDCUP ONE (16:38)
[2018-04-09] MEDS: ENOXAPARIN SODIUM 40 MG/0.4 ML SYRINGE SQ SCH (21:06)
[2018-04-09] MEDS: ACETAMINOPHEN ELIXIR 650 MG/20.3 ML UDCUP PEG PRN (22:12)
[2018-04-10] VITALS (11 sets, daily range): BP systolic 102–146; BP diastolic 54–80
[2018-04-10] MEDS: IPRATROPIUM/ALBUTEROL SULFATE 3 ML SOLUTION IH SCH ×6 (02:10→22:05)
[2018-04-10] MEDS: FUROSEMIDE 10 MG/ML 2ML VIAL IV SCH (03:09)
[2018-04-10] MEDS: METRONIDAZOLE 500 MG TABLET PO SCH ×4 (03:09→21:05)
[2018-04-10] MEDS: MEROPENEM 1 GM VIAL IVP SCH (03:32)
[2018-04-10 03:50] LABS: HEMATOCRIT 29.7 % (36-48); MEAN CORPUSCULAR HEMOGLOBIN 29.2 pg (27.0-33.0); MEAN CORPUSCULAR HGB CONC 34.2 g/dL (32.0-36.0); MEAN CORPUSCULAR VOLUME 85.4 fL (79-99); PLATELET COUNT (AUTO) 267 K/uL (130-400); RED BLOOD CELL COUNT(AUTO) 3.48 MIL/uL (4.00-5.50); RED CELL DISTRIBUTION WIDTH 14.7 % (11.0-15.5); WHITE BLOOD COUNT (AUTO) 8.5 K/uL (4.8-10.8)
[2018-04-10 04:01] LABS: CREATININE 0.7 mg/dL (0.5-1.5); PHOSPHORUS 2.5 mg/dL (2.5-4.9); POTASSIUM 3.5 mmol/L (3.5-5.1)
[2018-04-10] MEDS: INSULIN HUMULIN R 100 UNIT/ML 3ML SQ SCH ×3 (05:32→18:22)
[2018-04-10] MEDS: ALPRAZOLAM 0.5 MG TABLET PO SCH (06:00)
[2018-04-10] MEDS: LEVOTHYROXINE 100 MCG VIAL IV SCH (06:12)
[2018-04-10] MEDS ORDERED: LIDOCAINE HCL-MPF 1% 2ML VIAL IVP PRN (07:15)
[2018-04-10] MEDS ORDERED: POTASSIUM CHLORIDE 20MEQ/100ML 100 ML IV PRN (07:15)
[2018-04-10] MEDS ORDERED: POTASSIUM CHLORIDE 20 MEQ ERTAB PO PRN (07:15)
[2018-04-10] MEDS ORDERED: POTASSIUM CHLORIDE 10% ELIXIR 20 MEQ/15 ML UDCUP PO PRN (07:15)
[2018-04-10] MEDS: ENOXAPARIN SODIUM 40 MG/0.4 ML SYRINGE SQ SCH (09:00)
[2018-04-10] MEDS: ASPIRIN 81MG TAB.CHEW PO SCH (09:47)
[2018-04-10] MEDS: METOPROLOL TARTRATE 25 MG TAB PO SCH ×2 (09:47→21:05)
[2018-04-10] MEDS: METFORMIN HCL 500 MG TABLET PO SCH ×2 (09:48→21:05)
[2018-04-10] MEDS: LACTOBACILLUS RHAMNOSUS GG 1 EACH CAP.SPRINK PO SCH ×2 (09:48→21:05)
[2018-04-10] MEDS: FAMOTIDINE/PF 20 MG/2 ML VIAL IV SCH ×2 (09:48→21:05)
[2018-04-10] MEDS ORDERED: ALPRAZOLAM 0.25 MG TABLET PO PRN (10:00)
[2018-04-10] MEDS: ACETAMINOPHEN ELIXIR 650 MG/20.3 ML UDCUP PEG PRN (16:36)
[2018-04-10] MEDS ORDERED: ENOXAPARIN SODIUM 40 MG/0.4 ML SYRINGE SQ SCH (21:00)
[2018-04-11] MEDS: ACETAMINOPHEN ELIXIR 650 MG/20.3 ML UDCUP PEG PRN ×2 (00:17→08:04)
[2018-04-11] MEDS: IPRATROPIUM/ALBUTEROL SULFATE 3 ML SOLUTION IH SCH ×3 (02:02→10:22)
[2018-04-11] MEDS: METRONIDAZOLE 500 MG TABLET PO SCH ×3 (03:53→14:22)
[2018-04-11 03:58] VITALS: BP 156/54
[2018-04-11] MEDS: INSULIN HUMULIN R 100 UNIT/ML 3ML SQ SCH ×4 (05:53→16:28)
[2018-04-11] MEDS: LEVOTHYROXINE 100 MCG VIAL IV SCH (05:54)
[2018-04-11 07:34] VITALS: BP 155/77
[2018-04-11] MEDS: LACTOBACILLUS RHAMNOSUS GG 1 EACH CAP.SPRINK PO SCH (09:20)
[2018-04-11] MEDS: ASPIRIN 81MG TAB.CHEW PO SCH (09:21)
[2018-04-11] MEDS: METFORMIN HCL 500 MG TABLET PO SCH ×2 (09:21→20:58)
[2018-04-11] MEDS: METOPROLOL TARTRATE 25 MG TAB PO SCH ×2 (09:21→20:58)
[2018-04-11] MEDS: FAMOTIDINE/PF 20 MG/2 ML VIAL IV SCH (09:21)
[2018-04-11 11:10] VITALS: BP 130/75
[2018-04-11] MEDS ORDERED: IPRATROPIUM/ALBUTEROL SULFATE 3 ML SOLUTION IH PRN (14:30)
[2018-04-11 15:59] VITALS: BP 130/77
[2018-04-11] MEDS ORDERED: LEVO500T2 PO (16:30)
[2018-04-11] MEDS ORDERED: LEVO100T4 PO (16:30)
[2018-04-11] MEDS ORDERED: METO25 PO (16:30)
[2018-04-11 20:04] VITALS: BP 169/87
[2018-04-11] MEDS ORDERED: FAMOTIDINE 20MG TAB 20 MG TAB PO SCH (21:00)
[2018-04-12] MEDS ORDERED: LEVOTHYROXINE 100 MCG TABLET PO SCH (06:30)
== END 2018-04-11 22:10 | disposition home or self-care (01) | DRG 720 ==
LOC: EDH 20:31 → EDHIP 23:22 → 2DH 03-30 01:34 → 4BH 04-01 14:56 → 2AH 04-02 21:43 → 2BH 04-03 05:31 → 2CH 04-09 18:16 → 2AH 04-10 17:04
PROVIDERS: ADMIT Internal Medicine; ATTEND Internal Medicine
PROC: 5A1955Z Respiratory Ventilation, Greater than 96 Consecutive Hours (ICD-10-PCS; principal; 2018-04-03)
PROC: 0BH18EZ Insertion of Endotracheal Airway into Trachea, Via Natural or Artificial Opening Endoscopic (ICD-10-PCS; 2018-04-03)
PROC: 30233N1 Transfusion of Nonautologous Red Blood Cells into Peripheral Vein, Percutaneous Approach (ICD-10-PCS; 2018-04-03)
PROC: 02HV33Z Insertion of Infusion Device into Superior Vena Cava, Percutaneous Approach (ICD-10-PCS; 2018-04-04)
DX: A41.51 Sepsis due to Escherichia coli [E. coli] (principal); J96.01 Acute respiratory failure with hypoxia; R65.21 Severe sepsis with septic shock; Z99.11 Dependence on respirator [ventilator] status; E87.3 Alkalosis; E11.9 Type 2 diabetes mellitus without complications; D50.9 Iron deficiency anemia, unspecified; J18.9 Pneumonia, unspecified organism; N12 Tubulo-interstitial nephritis, not specified as acute or chronic; E83.39 Other disorders of phosphorus metabolism; E87.1 Hypo-osmolality and hyponatremia; N30.00 Acute cystitis without hematuria; I10 Essential (primary) hypertension; E78.5 Hyperlipidemia, unspecified; E03.9 Hypothyroidism, unspecified; E78.00 Pure hypercholesterolemia, unspecified; F41.9 Anxiety disorder, unspecified; N17.9 Acute kidney failure, unspecified; R63.1 Polydipsia; Z83.3 Family history of diabetes mellitus; Z82.49 Family history of ischemic heart disease and other diseases of the circulatory system; Z82.0 Family history of epilepsy and other diseases of the nervous system
CPT/HCPCS: 31500; 36415; 36430; 36600; 71045; 71260; 74177; 76700; 80048; 80053; 80061; 80074; 80076; 80202; 80339; 81001; 82270; 82435; 82533; 82550; 82570; 82803; 82947; 82948; 83036; 83520; 83540; 83550; 83605; 83735; 83874; 83880; 83930; 83935; 84100; 84132; 84295; 84300; 84443; 84484; 85014; 85018; 85025; 85027; 85378; 85610; 85730; 86038; 86140; 86160; 86431; 86850; 86900; 86901; 86922; 87040; 87077; 87088; 87186; 87324; 87633; 87804; 92610; 93005; 93306; 93970; 94002; 94003; 94150; 94640; 94660; 94664; 94667; 94668; 97039; A4218; A4357; C1751; C1894; G0378; J0692; J0696; J0885; J1650; J1756; J1815; J1940; J1956; J2185; J2250; J2920; J3010; J3370; J3475; J3480; J3490; J7030; J7040; J7120; P9016; Q9963

== ENCOUNTER 2024-01-25 13:07 | Observation (INO) | payer OTHER ==
[~2024-01-25] VITALS: Ht 152.4 cm; Wt 62.1 kg
[~2024-01-25 13:07] MED LIST changes: +AEC81 PO; -AMLO10TA6 PO; -ATOR20TA65 PO; +ATOR40TA69 PO; -ETOMIDATE 2 MG/ML 10 ML VIAL IVP ONE; -GLIM1TAB2 PO; +LEVO100T4 PO; +LEVO500T2 PO; -LISI10TA7 PO; +METO25 PO; -ROCURONIUM BROMIDE 10MG/1ML 5ML VL IV ONE
[2024-01-25] MEDS ORDERED: acetaMINOPHEN 325 MG TAB PO PRN (16:00)
[2024-01-25] MEDS ORDERED: ondanSETRON 4MG INJ IVP PRN (16:00)
[2024-01-25] MEDS ORDERED: LAbetaLOL 20MG SYG IV PRN (16:00)
[2024-01-25] MEDS ORDERED: LACTULOSE 20 GM/30 ML UDCUP PO PRN (16:00)
[2024-01-25] MEDS ORDERED: hydrALAZine 20MG/ML VIAL IV PRN (16:00)
[2024-01-25] MEDS ORDERED: cloNIDine HCL 0.1 MG TABLET PO PRN (16:00)
[2024-01-25 16:27] VITALS: O2SAT 99
[2024-01-25 16:30] VITALS: BP 176/87; PULSE 90; RESP 18; TEMP 98.3
[2024-01-25 16:30] LABS: BASOPHILS # (AUTO) 0.09 K/uL (0.00-0.20); BASOPHILS % (AUTO) 0.8 % (0.0-5.0); EOSINOPHILS # (AUTO) 0.04 K/uL (0.00-0.70); EOSINOPHILS % (AUTO) 0.4 % (0.0-8.0); IMMATURE GRANULOCYTE ABSOLUTE 0.04 K/uL (0-1); LYMPHOCYTES # (AUTO) 2.5 K/uL (1.0-4.8); LYMPHOCYTES % (AUTO) 22.2 % (21.0-51.0); MEAN CORPUSCULAR HEMOGLOBIN 28.1 pg (27.0-33.0); MEAN CORPUSCULAR HGB CONC 33.2 g/dL (32.0-36.0); MEAN CORPUSCULAR VOLUME 84.6 fL (79-99); MONOCYTES # (AUTO) 0.8 K/uL (0.1-1.0); MONOCYTES % (AUTO) 7.5 % (3.0-13.0); NEUTROPHILS # (AUTO) 7.7 K/uL (1.8-7.7); NEUTROPHILS % (AUTO) 68.7 % (40.0-77.0); PLATELET COUNT (AUTO) 304 K/uL (130-400); RED BLOOD CELL COUNT(AUTO) 4.49 MIL/uL (4.00-5.50); RED CELL DISTRIBUTION WIDTH 13.2 % (11.0-15.5); WHITE BLOOD COUNT (AUTO) 11.2 K/uL (4.8-10.8)
[2024-01-25 16:39] LABS: CREATININE 1.1 mg/dL (0.5-1.0)
[2024-01-25 16:58] LABS: POTASSIUM 6.4 mmol/L (3.5-5.1)
[2024-01-25] MEDS ORDERED: LISI40TA9 PO (17:31)
[2024-01-25] MEDS ORDERED: METF-526 PO (17:31)
[2024-01-25] MEDS ORDERED: ERGO500093 PO (17:31)
[2024-01-25] MEDS ORDERED: METO-391 PO (17:31)
[2024-01-25] MEDS ORDERED: LEVO75TA10 PO (17:31)
[2024-01-25] MEDS ORDERED: DAPA10TA PO (17:31)
[2024-01-25] MEDS: 0.9%NACL 1000ML 1,000 ML IV SCH (17:43)
[2024-01-25] MEDS: kayEXALate 15GM/60ML PO STA (17:43)
[2024-01-25 20:00] VITALS: BP 145/67; PULSE 96; RESP 17; TEMP 98.2; O2SAT 99
[2024-01-25] MEDS: atorVAStatin 40 MG TABLET PO SCH (20:33)
[2024-01-25] MEDS: LISINOPRIL 40 MG TABLET PO SCH (20:33)
[2024-01-25] MEDS: LOPERAMIDE HCL 2 MG CAP PO PRN (22:02)
[2024-01-26] VITALS: BP 141/65; PULSE 82; RESP 17; TEMP 98.2
[2024-01-26 04:00] VITALS: BP 153/59; PULSE 101; RESP 17; TEMP 98.2
[2024-01-26] MEDS: levoTHYROxine 75 MCG TABLET PO SCH (05:42)
[2024-01-26 07:50] VITALS: BP 144/68; PULSE 90; RESP 16; TEMP 98
[2024-01-26 09:15] VITALS: O2SAT 99
[2024-01-26] MEDS: metOPROLol sucCINATE 50 MG TAB.SR.24H PO SCH (09:34)
[2024-01-26 11:08] LABS: CREATININE 0.9 mg/dL (0.5-1.0); POTASSIUM 4.9 mmol/L (3.5-5.1)
[2024-01-26 11:12] LABS: HEMATOCRIT 34.6 % (36-48); MEAN CORPUSCULAR HEMOGLOBIN 28.5 pg (27.0-33.0); MEAN CORPUSCULAR HGB CONC 32.7 g/dL (32.0-36.0); MEAN CORPUSCULAR VOLUME 87.2 fL (79-99); RED BLOOD CELL COUNT(AUTO) 3.97 MIL/uL (4.00-5.50); RED CELL DISTRIBUTION WIDTH 13.5 % (11.0-15.5); WHITE BLOOD COUNT (AUTO) 8.7 K/uL (4.8-10.8)
[2024-01-26 12:21] VITALS: BP 150/68; PULSE 86; RESP 16; TEMP 98.6
== END 2024-01-26 16:30 | disposition home or self-care (01) ==
LOC: EDH 13:07 → EDHIP 13:08 → 3CH 16:27 → EDH 16:33
PROVIDERS: ADMIT Internal Medicine Critical Care Medicine; ATTEND Internal Medicine Critical Care Medicine
DX: E87.5 Hyperkalemia (principal); E87.1 Hypo-osmolality and hyponatremia; E78.5 Hyperlipidemia, unspecified; E11.9 Type 2 diabetes mellitus without complications; E86.0 Dehydration; R19.7 Diarrhea, unspecified; I10 Essential (primary) hypertension; Z79.899 Other long term (current) drug therapy
CPT/HCPCS: 96360; 96361 ×2; 84132; 80048 ×2; 85025; 86850; 86900; 86901; 36415 ×2; 85027; 82948 ×2; G0378 ×24; G0379

== ENCOUNTER → 2024-06-21 | Outpatient (CLI) | payer OTHER ==
[~2024-06-21] MED LIST changes: -AEC81 PO; +DAPA10TA PO; +ERGO500093 PO; -LEVO100T4 PO; -LEVO500T2 PO; +LEVO75TA10 PO; +LISI40TA9 PO; -METF-444 PO; +METF-526 PO; +METO-391 PO; -METO25 PO
--- NOTE | 2024-06-21 14:34 | HMCIMG ---
US RENAL SONOGRAM HISTORY: Abnormal renal functions COMPARISON: None TECHNIQUE: Renal and bladder ultrasound study was performed. FINDINGS: The right kidney measures 9.5 x 4.2 x 4.4 cm. The left kidney measures 8.7 x 4.9 x 4.3 cm. No evidence of hydronephrosis is seen of either kidney. Both kidneys are seen. Bladder is moderately distended. Prevoid bladder volume is 314 cc. Postvoid bladder volume is 128 cc. IMPRESSION: 1. No hydronephrosis is seen. Large post void residual is seen.
== END | disposition home or self-care (01) ==
LOC: RAH 12:33
PROVIDERS: ATTEND Internal Medicine
DX: N32.89 Other specified disorders of bladder (principal); R94.4 Abnormal results of kidney function studies
CPT/HCPCS: 76770